=== PATIENT | male | born 1995 | race Caucasian/White ===

== ENCOUNTER 2024-12-21 06:18 | Emergency (ER) | payer MEDICAID ==
[~2024-12-21] VITALS: Ht 170.2 cm; Wt 77.0 kg
[2024-12-21 06:27] VITALS: O2SAT 100
[2024-12-21 08:53] LABS: BASOPHILS % 0.5 % (0.0-2.0); EOSINOPHILS % 1.1 % (0.0-5.0); HEMATOCRIT. 43.8 % (42.0-52.0); HEMOGLOBIN. 14.8 g/dL (14.0-18.0); LYMPHOCYTES % 26.5 % (20.0-50.0); MEAN CORPUSCULAR HEMOGLOBIN 29.9 pg (28.0-32.0); MEAN CORPUSCULAR HGB CONC 33.7 g/dL (31.0-37.0); MEAN CORPUSCULAR VOLUME 88.6 fL (80.0-94.0); MEAN PLATELET VOLUME 9.2 fl (7.4-10.4); MONOCYTES % 7.2 % (2.0-8.0); NEUTROPHILS % 64.7 % (40.0-76.0); PLATELET 259 x1000/uL (130-400); RED BLOOD CELL COUNT 4.95 mill/uL (4.7-6.1); RED CELL DISTRIBUTION WIDTH 13.1 % (11.6-14.6); WHITE BLOOD COUNT 11.3 x1000/uL (4.5-11.0)
[2024-12-21 09:06] LABS: CHLORIDE 102 mEq/L (98-107); POTASSIUM 3.6 mEq/L (3.5-5.1); SODIUM 142 mEq/L (136-145)
[2024-12-21 09:07] LABS: CARBON DIOXIDE 30 mEq/L (21-32)
[2024-12-21 09:08] LABS: CALCIUM 9.6 mg/dL (8.7-10.4)
[2024-12-21 09:12] LABS: CREATININE 0.8 mg/dL (0.6-1.3); GLUCOSE 108 mg/dL (70-105); UREA NITROGEN BLOOD 16 mg/dL (9-23)
[2024-12-21 09:18] LABS: TROPONIN I HIGH SENSITIVITY < 4 ng/L (3.0-53)
[2024-12-21] MEDS ORDERED: ONDA4TAB50 PO (10:40)
[2024-12-21] MEDS ORDERED: FAMO-135 PO (10:40)
[2024-12-21 11:03] VITALS: BP 131/84; PULSE 86; RESP 18; TEMP 36.9; O2SAT 100
[2024-12-21] MEDS: ACETAMINOPHEN 500MG TABLET PO NR (11:03)
== END 2024-12-21 11:09 | disposition home or self-care (01) ==
LOC: ER 06:42
DX: R11.2 Nausea with vomiting, unspecified (principal); E86.0 Dehydration; R07.89 Other chest pain; F10.90 Alcohol use, unspecified, uncomplicated; F12.90 Cannabis use, unspecified, uncomplicated; Y90.9 Presence of alcohol in blood, level not specified
CPT/HCPCS: 36415; 71045; 80048; 83880; 84484; 85025; 93005; 99285